=== PATIENT | female | born 1975 | race American Indian/Alaskan Native ===

== ENCOUNTER 2020-10-01 04:50 | Emergency (ER) | payer SELFPAY ==
[2020-10-01 06:00] VITALS: BP 179/86
--- NOTE | 2020-10-01 07:43 | Emergency Department Report ---
Chief Complaint: Extremity Problem,Nontraumatic Stated Complaint: RT SHOULDER/ARM PAIN Time Seen by Provider: 10/01/20 07:35 - HPI History of Present Illness: Chief complaint: Shoulder pain HPI: This is a 45-year-old female with past medical history of hypertension who has "sciatica pain in her right shoulder and arm. Mostly at night. She did not try any home treatment. She denies any trauma. No previous history of neck injury. Pain is mild. Symptoms have been present for about 3 weeks. Physical exam: Patient appears well, right shoulder: Full range of motion, no crepitus, no dislocation, normal skin, intact strength in the right upper extremity vital signs are stable - ROS Review of Systems: Right shoulder pain differential diagnosis includes osteoarthritis, rotator cuff injury, cervical radiculopathy. Due to mild symptoms further treatment evaluation not indicated. I recommended scheduled ibuprofen doses. Referral to orthopedic surgeon as needed - Exam Vital Signs: Vital Signs 10/01/20 10/01/20 05:20 05:28 Temperature 98.0 F Respiratory 18 Rate Blood Pressure 179/86 O2 Sat by Pulse 98 Oximetry MSE screening note: Focused history and physical exam performed. Due to findings the following was ordered: ED Disposition for MSE Clinical Impression: Cervical radiculopathy, Osteoarthritis, shoulder Disposition: Z-[id number] MED SCREENING EXAM-LEFT Condition: Stable Instructions: Osteoarthritis, Cervical Radiculopathy, [id number] Referrals: AZ RUCKER MD [Staff Physician] - 3-5 Days
--- NOTE | 2020-10-02 19:34 | Electrocardiograph Report ---
[facility] Test Date: 2020-10-01 Test Time: 05:07:59 Pat Name: TONYA THOMPSON Department: Room: Gender: F Computer Software Engineer: CANDACE : 1975 Requested By: KAY JOHNSON Order Number: [id number] Reading MD: Nahum Guerrier Measurements Intervals Fine Rate: 66 P: -6 NE: 194 QRS: 52 QRSD: 91 T: 49 QT: 420 QTc: 441 Interpretive Statements Sinus rhythm No previous ECG available for comparison Electronically Signed On 10-02-2020 19:34:24 EDT by Nahum Guerrier
== END 2020-10-01 08:18 | disposition left against medical advice (07) ==
LOC: ED 04:50
DX: M54.12 Radiculopathy, cervical region (principal); M19.011 Primary osteoarthritis, right shoulder; Z53.21 Procedure and treatment not carried out due to patient leaving prior to being seen by health care provider
CPT/HCPCS: 93005